=== PATIENT | female | born 1935 | race Caucasian/White ===

== ENCOUNTER 2016-10-03 17:56 | Inpatient (IN) | payer BC ==
--- NOTE | ~2016-10-03 | DS ---
Discharge Summary [facility] [address] [place]. [address] NAME: JOSEFINA CLEMONS : 33 STATUS : DIS IN PAT#: [id number] AGE: 81 ADM/REG DATE : 10/03/16 MR#: [id number] REPORT SERV DATE: 10/07/16 DICTATED BY: VINAYAK HERRERA DATE: 10/06/16 REPORT STATUS : Draft TRANSCRIBED BY: MODL DATE: 10/06/16 ADMISSION DATE: 10/03/2016 DISCHARGE DATE: 10/06/2016 DISCHARGE DIAGNOSES: Include: 1. Upper gastrointestinal bleed with supratherapeutic INR, that is resolving. 2. Acute kidney injury, most recent creatinine 1.36, dehydration. 3. Generalized weakness. 4. Pyuria, present on admission, treated with Rocephin. 5. Chronic LV dysfunction. Her EF is 25%. 6. Paroxysmal atrial fibrillation, history of pacemaker. 7. Peripheral arterial disease per an arterial duplex ultrasound. DISCHARGE MEDICATIONS: Are as follows: Amiodarone 100 mg daily; Tessalon Perles 100 mg three times a day p.r.n. for cough; vitamin D 62745 units p.o. weekly; Synthroid 100 mcg daily; Entresto 24/26 mg one tablet twice a day; Jantoven 2 mg at bedtime; Aldactone 25 mg twice a day; Lasix 20 mg daily; Prevacid 30 mg twice a day; and Crestor 20 mg at bedtime. HISTORY OF PRESENT ILLNESS: A very pleasant, 81-year-old white female, who had been sent from Dr. Llanos, manager labor relations office for weakness, shortness of breath, and nausea. She is also found to have a supratherapeutic INR of 5.6. Please see the initial H and P of Dr. Rashmi Gonzales, as patient was admitted to the Hospitalist Service for further evaluation and treatment. CONSULTANTS DURING THIS ADMISSION: Include GI, Dr. Clay Smallwood, and Cardiology Dr. David Llanos. PROCEDURES AND IMAGING DURING THIS ADMISSION: Include an initial CT of the brain showing stable moderate generalized atrophy, an incidental lipoma noted of no clinical significance and arterial duplex ultrasound lower extremities showing peripheral arterial disease right suggesting some stenotic changes in the distal popliteal proximal trifurcation region. CONTINUATION OF HOSPITAL COURSE: I began seeing the patient on 10/04/2016 where the patient on exam was clinically dry and dehydrated, BUN and creatinine both elevated. She was given a slow bolus of normal saline IV fluid which she tolerated well and had improvement in both her symptoms and lab work. Serial H and Hs were followed given the fact that she had some melena and supratherapeutic INR and so far these have remained very stable, and GI did not have any plans for scoping during this admission. In review of her overall lab work, it was noted she had some pyuria on the urinalysis. Given her symptoms of weakness and nausea she was treated with 1 dose of IV Rocephin, however, her urinary culture did not grow any specific bacteria. In consult with Dr. Llanos, her manager labor relations, it was determined that she will not be resuming her sotalol but will be switching to amiodarone and also will be resuming her Entresto dosage at a lower dose. Initially, her Coumadin had been placed on hold and her INR did trend downward falling from 4 to 3.7, and then finally to 2.5. With her continued improvement symptomatically, she was able to ambulate in the hallway, and was able to eat and drink. She was felt safe for discharge home on 10/06/2016. Followup plan Discharge Summary [address] [address] NAME: JOSEFINA CLEMONS : 33 STATUS : DIS IN PAT#: [id number] AGE: 81 ADM/REG DATE : 10/03/16 MR#: [id number] REPORT SERV DATE: 10/07/16 DICTATED BY: VINAYAK HERRERA DATE: 10/06/16 REPORT STATUS : Draft TRANSCRIBED BY: MODStephanie DATE: 10/06/[address] Llanos in 3 weeks. She will be following up with her primary care on Monday for recheck BMP and recheck INR. She will also have an appointment as an outpatient with Vascular Surgery, Dr. Arturo Dhillon, that has been set for 11/09/2016 to further assess her peripheral arterial disease, that was found on the arterial duplex during this admission. Otherwise, the patient's questions were answered at bedside. She is in agreement with this plan going forward. Please note greater than 30 minutes was spent on this discharge for extensive medication teaching, followup planning, and further disposition. I have also instructed her to follow up with Dr. Smallwood for any persistent melena and to return to the emergency room for symptoms of worsening dizziness, nausea, fatigue, or blood in stool. CSC/MODL Vinayak Herrera NP / [id number] CC: Shaka Chang M.D.
--- NOTE | ~2016-10-03 | HP ---
History And Physical [place] [address] [place]. [address] NAME: JOSEFINA CLEMONS : 33 STATUS : ADM IN [facility]#: [id number] AGE: 81 ADM/REG DATE : 10/03/16 MR#: [id number] REPORT SERV DATE: 10/03/16 DICTATED BY: LTAISHA GALLARDO DATE: 10/03/16 REPORT STATUS : Draft TRANSCRIBED BY: MODStephanie DATE: 10/03/16 DATE OF ADMISSION: 10/03/2016 ADDENDUM: Because of abnormal creatinine, acute kidney injury on chronic kidney disease, her baseline creatinine is 1.4, 1.3; tonight is 1.93. We are going to hold her Lasix, spironolactone, and Entresto tonight. Tomorrow, if the kidney function will come back to the baseline, these medications will need to be restarted by my partner; also for Hemoccult- positive stool, we will check stool Hemoccult x3; with a headache and supratherapeutic INR, we will do a CT on the head without contrast, and also with severe bluish discoloration of the feet, we will order bilateral arterial duplex ultrasound, specifically in the situation that she has diminished pedal pulses. Also, Dr. Smallwood, financial foundations representative is consulted for black stool. MG/DARNELL Latisha Gallardo M.D. / [id number] CC: Shaka Barrett M.D.
--- NOTE | ~2016-10-03 | CN ---
Consultation Report [facility] [address] [place]. [address] NAME: JOSEFINA CLEMONS : 31 STATUS : ADM IN [facility]#: [id number] AGE: 81 ADM/REG DATE : 10/03/16 MR#: [id number] REPORT SERV DATE: 10/04/16 DICTATED BY: CLAY MAGANA DATE: 10/04/16 REPORT STATUS : Draft TRANSCRIBED BY: MODL DATE: 10/04/16 DATE OF CONSULTATION: 10/04/2016 HISTORY OF PRESENT ILLNESS: This 81-year-old white female has a history of stricture ulcer gastritis. She was admitted with supratherapeutic INR. She has been feeling weak lately. She does complain of some dysphagia to her mid chest. She states in the last 24 hours, she has had a dark stool. She does take Jantoven. PAST MEDICAL HISTORY: Sick sinus syndrome, pacemaker, nonischemic cardiomyopathy, ejection fraction in the 20s, rheumatoid arthritis, left bundle-branch block, and sleep apnea. MEDICATIONS AT HOME: Include Aldactone, Crestor, Entresto, furosemide, Jantoven, and Prevacid. PHYSICAL EXAMINATION: GENERAL: Somewhat pale, elderly cachectic white female. NECK: Supple. Trachea midline. No adenopathy. CHEST: Clear. CARDIAC: Normal. ABDOMEN: Soft, nontender. LABORATORY DATA: Hemoglobin 14.3, which fell to 12.5. IMPRESSION: Melenic stools. Hemoccult pending. Certainly, she could have had some minor blood loss from the supratherapeutic INR. PLAN: 1. Agree with increase PPI dose. 2. No immediate endoscopy needed. She does have some dysphagia, but cannot dilate with her being on Coumadin. MG/MODL Clay Magana M.D. / [id number] CC: Karan Schulte M.D.
--- NOTE | ~2016-10-03 | HP ---
History And Physical [place] [address] [facility] [place]. [address] NAME: JOSEFINA CLEMONS : 33 STATUS : ADM IN [facility]#: [id number] AGE: 81 ADM/REG DATE : 10/03/16 MR#: [id number] REPORT SERV DATE: 10/03/16 DICTATED BY: LATISHA GALLARDO DATE: 10/03/16 REPORT STATUS : Draft TRANSCRIBED BY: MODL DATE: 10/03/16 DATE OF ADMISSION: 10/03/2016 HISTORY OF PRESENT ILLNESS: The patient is a very pleasant 81-year-old female, who was sent from Dr. Llanos's office to [facility] and the reason why Dr. Llanos send this patient as a direct transfer was severe weakness, shortness of breath, as well as not feeling well, and black stool for several days, and supratherapeutic INR, according to Dr. Llanos's note it was 5.6. The patient was seen by me on the floor, and the patient says that she was not feeling well for the last six months, but for the last several weeks, she was not doing well. She was extremely weak and she was coughing a lot, but all her family had flu four weeks ago, but she thinks that the cough is related to her allergies. She is complaining of periodic nausea. She had diarrhea which currently resolved, but now she is having black stool. The nausea comes back periodically as well as she is having insomnia and she is now having headache. She denies chest pain, but she is short of breath on minimal physical exertion. She is complaining of her feet being discolored, bluish, and very cold. Right now, she does not have any diarrhea. She was having black stool. She said that she always had chronic nausea on and off, but no vomiting. ALLERGIES: ALL 14-POINT SYSTEM REVIEW DONE AND NEGATIVE EXCEPT WHAT IS STATED IN THE HISTORY OF PRESENT ILLNESS. PAST MEDICAL HISTORY: Known for history of sick sinus syndrome, status post pacemaker placement by Dr. Llanos, nonischemic cardiomyopathy with persistent left ventricle ejection fraction of 30%. According to last echocardiogram, it was decreased to 20% to 25%, and according to the patient, she had an echo done one week ago. History of hypertension; paroxysmal atrial fibrillation, on Jantoven; history of occlusion of subclavian system, also on Jantoven; history of rheumatoid arthritis, treated by ; gastroesophageal reflux disease, Dr. 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 She also has a history of left bundle branch block, history of paroxysmal atrial fibrillation, history of sleep apnea, history of diverticulosis of colon without diverticulitis, cardiomyopathy, and sleep apnea. PAST SURGICAL HISTORY: Includes cholecystectomy, appendectomy, and hysterectomy. SOCIAL HISTORY: No alcohol. No recreational drugs. No smoking now or in the past. HOME MEDICATIONS: Include Aldactone 25 mg a day, Crestor 20 mg a day, Entresto 97/103 once a day, furosemide 20 mg daily, Jantoven 1 mg tablet alternating with 2 mg, levothyroxine 100 mcg daily, Prevacid 30 mg, and vitamin D 50,000 units daily. ALLERGIES: THE PATIENT REPORTED THAT WHEN SHE WAS IN THE EMERGENCY ROOM TWO OR THREE DAYS AGO HER METOPROLOL WAS CHANGED TO SOTALOL, AND SHE THINKS MAYBE THAT MEDICINE MAY GIVE HER NAUSEA. History And Physical [address] [address] NAME: JOSEFINA CLEMONS : 33 STATUS : ADM IN [facility]#: [id number] AGE: 81 ADM/REG DATE : 10/03/16 MR#: [id number] REPORT SERV DATE: 10/03/16 DICTATED BY: LATISHA GALLARDO DATE: 10/03/16 REPORT STATUS : Draft TRANSCRIBED BY: DARNELL DATE: 10/03/16 SHE IS ALLERGIC AND INTOLERANT OF ANTOINE INHIBITORS GIVING HER COUGH; AMIODARONE AND CARVEDILOL GIVING PROFOUND FATIGUE; CODEINE; DILTIAZEM ; BENADRYL; HYDROMORPHONE; HYDROXYCHLOROQUINE; SULFATE, NAUSEA. SHE CANNOT TOLERATE MEPERIDINE, MISCELLANEOUS REAGENTS, MORPHINE, MOXIFLOXACIN, NITROGLYCERIN, AND PROMETHAZINE. FAMILY HISTORY: Mother had CHF. Father had rheumatoid arthritis and from cardiac arrest. PHYSICAL EXAMINATION: GENERAL: Well-nourished well-developed female, not in acute distress, complaining of a headache. VITAL SIGNS: Blood pressure 111/59, temperature 97.4, heart rate 92, respiratory rate 18, and oxygen saturation 97% on room air. HEENT: Head atraumatic, normocephalic. Conjunctivae clear. Pupils are equal and reactive to light and accommodation. Extraocular muscles are intact. NECK: Supple. Trachea is midline. No supraclavicular or cervical lymphadenopathy. LUNGS: Diminished breath sounds bilaterally. Decreased respiratory effort. CARDIOVASCULAR SYSTEM: Regular rate and rhythm. Point of maximal impulse not displaced. ABDOMEN: Soft, nontender, nondistended. Positive normoactive bowel sounds. EXTREMITIES: No clubbing, but they are cyanotic. There is diminished pedal pulse and there is cyanosis and they are extremely cold to touch, both feet. PSYCHIATRIC: Normal mood, flat affect. NEUROLOGICAL: Awake alert, and oriented to time, place, and person. Muscle strength is 5/5 bilaterally on upper and lower extremities. SKIN: Normal color. Only feet are a kind of discolored and decreased turgor. LABORATORY RESULTS: Sodium 136, potassium 4.5, chloride 97, carbon dioxide 26, BUN 40, creatinine 1.93, blood sugar 145. I would like to mention that her baseline creatinine was 1.43 on 09/23/2016. White count 9, hemoglobin 14.3, hematocrit 40.7, platelet count 361. Her PT 38.6, INR is 4. EKG: EKG showed left bundle branch block with a rate of 87, paced rhythm and it is regular. She had a chest x-ray done on 09/22/2016, which did not show any acute abnormality. ASSESSMENT AND PLAN: 1. This is this is very pleasant 81-year-old female with a past medical history of ischemic cardiomyopathy, history of paroxysmal atrial fibrillation, history of pacemaker placement, history of rheumatoid arthritis, and history of chronic nausea, chronically on Coumadin, presented with severe weakness. 2. Supratherapeutic INR. 3. Black stool. 4. Increasing nausea. 5. Cough. 6. Headache. 7. Insomnia. 8. Bluish discoloration of the feet. Question if she has peripheral arterial disease. History And Physical [address] [place]. [address] NAME: JOSEFINA CLEMONS : 33 STATUS : ADM IN [facility]#: [id number] AGE: 81 ADM/REG DATE : 10/03/16 MR#: [id number] REPORT SERV DATE: 10/03/16 DICTATED BY: LATISHA GALLARDO DATE: 10/03/16 REPORT STATUS : Draft TRANSCRIBED BY: DARNELL DATE: 10/03/16 9. History of ischemic cardiomyopathy. 10.Gastroesophageal reflux disease. 11.Newly diagnosed acute kidney injury on chronic kidney disease likely secondary to diuretics. Baseline creatinine 1.43, now 1.93. We will admit the patient to telemetry bed for her headaches since she has supratherapeutic INR on earlier, it was in the high range. I will do a CT of the head without contrast now. 12.For the cough. We will order chest x-ray and give her breathing treatment. 13.We will give her reasonable control of nausea with intravenous Zofran and continue her proton pump inhibitor. 14.Supratherapeutic INR. We will hold her warfarin and check PT/INR daily, and Pharmacy will restart Coumadin anticoagulation when it will be necessary according to INR. 15.For the insomnia, we will give her Ativan at home. She also cannot tolerate Ambien at this she told me. 16.Blue discoloration of the feet. She may have peripheral arterial disease. They are very cold and diminished pedal pulses. We will do arterial duplex ultrasound on this patient. 17.We will also check urinalysis and she has also acute kidney injury on chronic kidney disease. We are going to hold her furosemide for one day and probably Entresto should be on hold, and we will monitor her creatinine. 18.We will also check her TSH and magnesium level and serial troponins. My partner will see this patient starting tomorrow morning and also I spoke with Dr. Risa Hinds, and she said that hospitalist to keep this patient on their service. She will just do a social visit. MG/DARNELL Latisha Gallardo M.D. / [id number] CC: Shaka Barrett M.D.
[~2016-10-03 17:56] MED LIST: C25 PO; CORDARONE PO; COZ25 PO; COZ50 PO; DIOV80 PO; DSS PO; JANTOVEN2 MG PO; JANTOVEN2.5 MG PO; JANTOVEN3 MG PO; KLOR-CON M2020 MEQ PO; L20 PO; LEVAQ250 PO; LEVOTHYROXIN100 MCG PO; LIBRAX PO; LOP25 PO; MAXZIDE PO; METHOC750B PO; NATURA2 OPH; NORCO1 TA1 PO; NORV5 PO; P10 PO; PLAQ200B PO; PREDNISONE2.5 MG PO; PREV30 PO; PRILO PO; SPIRO25 PO; SYN.05 PO; SYN075 PO; SYN1 PO; TOPXL25 PO; ULTRAM50 PO; VITD PO; X5 PO; ZOFRANODT8 PO
[2016-10-03 18:53] LABS: BASOPHILS 0.1 %; BASOPHILS ABSOLUTE 0.01 10/3/uL (0.0-0.16); EOSINOPHILS ABSOLUTE 0.18 10/3/uL (0.0-0.53); HEMATOCRIT 40.7 % (36.0-48.0); HEMOGLOBIN 14.3 g/dL (12.0-16.0); IMMATURE GRANULOCYTES 0.3 %; IMMATURE GRANULOCYTES ABSOLUTE 0.03 10/3/uL (0.0-0.11); LYMPHOCYTES 19.6 %; LYMPHOCYTES ABSOLUTE 1.76 10/3/uL (0.67-4.30); MEAN CORPUS HGB CONC 35.1 g/dL (32.0-36.0); MEAN CORPUSCULAR HEMOGLOB 30.7 pg (26.0-34.0); MEAN CORPUSCULAR VOLUME 87.3 fL (80-100); MEAN PLATELET VOLUME 9.4 fL (9.2-13.0); MONOCYTES ABSOLUTE 1.26 10/3/uL (0.21-1.20); NEUTROPHILS ABSOLUTE 5.74 10/3/uL (2.02-8.40); RBC DISTRIBUTION WIDTH 14.4 % (12.0-16.0); RED CELL COUNT 4.66 10/6/uL (4.0-5.6)
[2016-10-03 18:55] LABS: MANUAL DIFF NO %; PLATELET COUNT 361 10/3/uL (150-400)
[2016-10-03 19:01] LABS: PROTIME (NOT ORD) 38.6 SEC (12.0-14.5)
[2016-10-03 19:05] LABS: BUN (BLOOD UREA NITROGEN) 40 MG/DL (6-23); CALCIUM, SERUM 9.5 MG/DL (8.5-10.4); CHLORIDE, SERUM 97 MMOL/L (96-112); CO2 (CARBON DIOXIDE) 26 MMOL/L (24-34); CREATININE 1.93 MG/DL (0.55-1.02); GFR AFRICAN AMERICAN 27 ML/MIN (>=60); GFR NON AFRICAN AMERICAN 24 ML/MIN (>=60); GLUCOSE, SERUM 145 MG/DL (60-99); POTASSIUM, SERUM 4.5 MMOL/L (3.5-5.3); SODIUM, SERUM 136 MMOL/L (135-148)
[2016-10-03] MEDS ORDERED: SPIRO25 PO (20:14)
[2016-10-03] MEDS ORDERED: JANTOVEN2 MG PO (20:14)
[2016-10-03] MEDS ORDERED: L20 PO (20:15)
[2016-10-03] MEDS ORDERED: SACU1TAB PO (20:15)
[2016-10-03] MEDS ORDERED: PREV30 PO (20:16)
[2016-10-03] MEDS ORDERED: VITD PO (20:16)
[2016-10-03] MEDS ORDERED: SYN1 PO (20:16)
[2016-10-03] MEDS ORDERED: CRESTOR20 MG PO (20:17)
[2016-10-03] MEDS ORDERED: CORDARONE PO (20:19)
[2016-10-03 20:36] LABS: TROPONIN I <0.02 NG/ML (<0.05)
[2016-10-03 20:56] LABS: ULTRASENSITIVE TSH 0.779 MCIU/ML (0.358-3.740)
[2016-10-03 22:42] LABS: HEMATOCRIT 39.6 % (36.0-48.0)
[2016-10-04 05:44] LABS: ASCORBIC ACID (UR NOT ORDER) NEG (NEG); BILIRUBIN, URINE NEGATIVE (NEG); KETONE, URINE NEGATIVE (NEG); LEUKOCYTE ESTERASE(NOT OR MOD (NEG); WBC (NOT ORDERED) (RFLEX) 19 (0-5)
[2016-10-04 07:01] LABS: BASOPHILS 0.3 %; BASOPHILS ABSOLUTE 0.02 10/3/uL (0.0-0.16); EOSINOPHILS 2.6 %; EOSINOPHILS ABSOLUTE 0.19 10/3/uL (0.0-0.53); HEMATOCRIT 36.8 % (36.0-48.0); HEMOGLOBIN 12.5 g/dL (12.0-16.0); IMMATURE GRANULOCYTES 0.3 %; IMMATURE GRANULOCYTES ABSOLUTE 0.02 10/3/uL (0.0-0.11); LYMPHOCYTES 28.4 %; LYMPHOCYTES ABSOLUTE 2.04 10/3/uL (0.67-4.30); MEAN CORPUSCULAR HEMOGLOB 29.7 pg (26.0-34.0); MEAN CORPUSCULAR VOLUME 87.4 fL (80-100); MEAN PLATELET VOLUME 9.4 fL (9.2-13.0); MONOCYTES 10.7 %; MONOCYTES ABSOLUTE 0.77 10/3/uL (0.21-1.20); NEUTROPHILS 57.7 %; NEUTROPHILS ABSOLUTE 4.14 10/3/uL (2.02-8.40); PLATELET COUNT 318 10/3/uL (150-400); RBC DISTRIBUTION WIDTH 14.5 % (12.0-16.0); RED CELL COUNT 4.21 10/6/uL (4.0-5.6); WHITE BLOOD CELLS 7.2 10/3/uL (4.5-10.5)
[2016-10-04 07:02] LABS: MANUAL DIFF NO %
[2016-10-04 07:09] LABS: INTERNATIONAL NORMAL RATI 4.2 UNITS (-); PROTIME (NOT ORD) 40.4 SEC (12.0-14.5)
[2016-10-04 07:22] LABS: BUN (BLOOD UREA NITROGEN) 39 MG/DL (6-23); CALCIUM, SERUM 8.9 MG/DL (8.5-10.4); CHLORIDE, SERUM 99 MMOL/L (96-112); CO2 (CARBON DIOXIDE) 26 MMOL/L (24-34); GFR AFRICAN AMERICAN 28 ML/MIN (>=60); GFR NON AFRICAN AMERICAN 24 ML/MIN (>=60); GLUCOSE, SERUM 120 MG/DL (60-99); POTASSIUM, SERUM 4.4 MMOL/L (3.5-5.3); SODIUM, SERUM 136 MMOL/L (135-148); TROPONIN I 0.04 NG/ML (<0.05)
[2016-10-04 12:27] LABS: HEMATOCRIT 36.8 % (36.0-48.0); HEMOGLOBIN 12.9 g/dL (12.0-16.0)
[2016-10-04 22:14] LABS: HEMATOCRIT 37.7 % (36.0-48.0)
[2016-10-05 06:21] LABS: INTERNATIONAL NORMAL RATI 3.7 UNITS (-); PROTIME (NOT ORD) 36.3 SEC (12.0-14.5)
[2016-10-05 06:28] LABS: BASOPHILS 0.2 %; BASOPHILS ABSOLUTE 0.02 10/3/uL (0.0-0.16); EOSINOPHILS 2.3 %; EOSINOPHILS ABSOLUTE 0.19 10/3/uL (0.0-0.53); HEMOGLOBIN 11.4 g/dL (12.0-16.0); IMMATURE GRANULOCYTES 0.2 %; IMMATURE GRANULOCYTES ABSOLUTE 0.02 10/3/uL (0.0-0.11); LYMPHOCYTES 18.1 %; MEAN CORPUS HGB CONC 35.3 g/dL (32.0-36.0); MEAN CORPUSCULAR HEMOGLOB 31.4 pg (26.0-34.0); MEAN PLATELET VOLUME 9.2 fL (9.2-13.0); MONOCYTES 14.9 %; MONOCYTES ABSOLUTE 1.23 10/3/uL (0.21-1.20); NEUTROPHILS 64.3 %; NEUTROPHILS ABSOLUTE 5.31 10/3/uL (2.02-8.40); PLATELET COUNT 305 10/3/uL (150-400); RBC DISTRIBUTION WIDTH 14.4 % (12.0-16.0); RED CELL COUNT 3.63 10/6/uL (4.0-5.6); WHITE BLOOD CELLS 8.3 10/3/uL (4.5-10.5)
[2016-10-05 06:29] LABS: HEMATOCRIT 32.3 % (36.0-48.0); MANUAL DIFF NO %
[2016-10-05 06:46] LABS: CALCIUM, SERUM 8.2 MG/DL (8.5-10.4); CHLORIDE, SERUM 106 MMOL/L (96-112); CO2 (CARBON DIOXIDE) 24 MMOL/L (24-34); CREATININE 1.65 MG/DL (0.55-1.02); GFR AFRICAN AMERICAN 33 ML/MIN (>=60); GFR NON AFRICAN AMERICAN 28 ML/MIN (>=60); SODIUM, SERUM 140 MMOL/L (135-148)
[2016-10-05 06:47] LABS: BUN (BLOOD UREA NITROGEN) 32 MG/DL (6-23); GLUCOSE, SERUM 146 MG/DL (60-99)
[2016-10-05 12:55] LABS: HEMATOCRIT 34.8 % (36.0-48.0); HEMOGLOBIN 11.9 g/dL (12.0-16.0)
[2016-10-05 21:03] LABS: HEMOGLOBIN 11.2 g/dL (12.0-16.0)
[2016-10-06 06:06] LABS: HEMATOCRIT 33.3 % (36.0-48.0); HEMOGLOBIN 11.3 g/dL (12.0-16.0)
[2016-10-06 06:14] LABS: INTERNATIONAL NORMAL RATI 2.5 UNITS (-)
[2016-10-06 06:15] LABS: CALCIUM, SERUM 8.7 MG/DL (8.5-10.4); CHLORIDE, SERUM 105 MMOL/L (96-112); CO2 (CARBON DIOXIDE) 25 MMOL/L (24-34); CREATININE 1.36 MG/DL (0.55-1.02); GFR AFRICAN AMERICAN 42 ML/MIN (>=60); GFR NON AFRICAN AMERICAN 36 ML/MIN (>=60); POTASSIUM, SERUM 4.3 MMOL/L (3.5-5.3); SODIUM, SERUM 140 MMOL/L (135-148)
[2016-10-06 06:16] LABS: BUN (BLOOD UREA NITROGEN) 21 MG/DL (6-23); GLUCOSE, SERUM 115 MG/DL (60-99)
[2016-10-06 06:55] LABS: PROTIME (NOT ORD) 26.8 SEC (12.0-14.5)
[2016-10-06 11:33] LABS: HEMATOCRIT 34.1 % (36.0-48.0); HEMOGLOBIN 11.6 g/dL (12.0-16.0)
[2016-10-06] MEDS ORDERED: TESS PO (15:45)
[2016-10-06] MEDS ORDERED: ZOFRAN4 PO (15:45)
[2016-10-06] MEDS ORDERED: ATV.5 PO (16:57)
== END 2016-10-06 17:27 | disposition home or self-care (01) | DRG 683 ==
LOC: 6NO 17:56
PROVIDERS: Hospitalist; Internal Medicine; Nurse Practitioner Family
DX: N17.9 Acute kidney failure, unspecified (principal); K92.2 Gastrointestinal hemorrhage, unspecified; I48.0 Paroxysmal atrial fibrillation; I42.9 Cardiomyopathy, unspecified; R13.10 Dysphagia, unspecified; E86.0 Dehydration; I73.9 Peripheral vascular disease, unspecified; I70.201 Unspecified atherosclerosis of native arteries of extremities, right leg; K21.9 Gastro-esophageal reflux disease without esophagitis; M06.9 Rheumatoid arthritis, unspecified; R05 Cough; K57.30 Diverticulosis of large intestine without perforation or abscess without bleeding; R79.1 Abnormal coagulation profile; Z90.49 Acquired absence of other specified parts of digestive tract; Z95.0 Presence of cardiac pacemaker; Z88.8 Allergy status to other drugs, medicaments and biological substances; Z88.2 Allergy status to sulfonamides; Z88.5 Allergy status to narcotic agent; Z79.01 Long term (current) use of anticoagulants
CPT/HCPCS: 70450; 71020; 80048; 81001; 82272; 83735; 83880; 84443; 84484; 85014; 85018; 85025; 85610; 87086; 93005; 93925; 94640; 97161-GP; A9270-GY; G8978-CJ-GP; G8979-CJ-GP; G8980-CJ-GP